=== PATIENT | male | born 1995 | race Caucasian/White ===

== ENCOUNTER 2017-01-20 17:06 | Emergency (ER) | payer BC ==
[2017-01-20 17:18] VITALS: BP 142/68
--- NOTE | 2017-01-20 17:27 | UC ---
UC Dental HPI - HPI Summary HPI Summary: 21 YEAR OLD MALE PRESENTS WITH COMPLAINS OF RIGHT LOWER JAW DENTAL ABSCESS. - History of Current Complaint Chief Complaint: UCDentalProblem Stated Complaint: DENTAL COMPLAINT Time Seen by Provider: 01/20/17 17:22 - Allergies/Home Medications Allergies/Adverse Reactions: Allergies Allergy/AdvReac Type Severity Reaction Status Date / Time Sulfa Antibiotics Allergy Unknown Unknown Verified 01/20/17 17:19 Reaction Details PMH/Surg Hx/FS Hx/Imm Hx Other History Of: Negative For: HIV, Hepatitis B, Hepatitis C, Anticoagulant Therapy - Surgical History Surgical History: None - Family History Known Family History: Positive: Hypertension Negative: Cardiac Disease, Diabetes - Social History Alcohol Use: Weekly Alcohol Amount: 5-6 week Substance Use Type: None Smoking Status (MU): Never Smoked Tobacco - Immunization History Most Recent Influenza Vaccination: no Review of Systems Constitutional: Negative Skin: Negative Eyes: Negative ENT: Dental Pain Respiratory: Negative Cardiovascular: Negative Gastrointestinal: Negative Genitourinary: Negative Motor: Negative Neurovascular: Negative Musculoskeletal: Negative Neurological: Negative Psychological: Negative All Other Systems Reviewed And Are Negative: Yes Physical Exam Triage Information Reviewed: Yes Vital Signs: Initial Vital Signs Temp 36.9 C 01/20/17 17:10 Pulse 83 01/20/17 17:10 Resp 18 01/20/17 17:10 BP 142/68 01/20/17 17:10 Eye Exam: Normal ENT: Positive: Other: - RIGHT LOWER JAW DENTAL ABSCESS Dental Exam: Normal Neck exam: Normal Neck: Positive: 1 Respiratory Exam: Normal Cardiovascular Exam: Normal Abdominal Exam: Normal Musculoskeletal Exam: Normal Neurological Exam: Normal Psychological Exam: Normal Skin Exam: Normal Dental Complaint Course/Dx - Differential Dx/Diagnosis Provider Diagnoses: RIGHT LOWER JAW ABSCESS Discharge - Discharge Plan Condition: Stable Disposition: HOME Prescriptions: Amoxicillin/Clavulanate TAB* [Augmentin TAB 875*] 875 mg PO BID #20 tab Chlorhexidine MW 0.12% 473ML* [Peridex Mouth Wash 0.12%*] 15 ml MT TID PC #1 btl Naproxen [Naproxen DR 500 MG TAB] 500 mg PO BID WITH MEALS #30 tab Patient Education Materials: Toothache (ED) Referrals: Robin Hare MD [Primary Care Provider] - If Needed
== END 2017-01-20 17:34 | disposition home or self-care (01) ==
LOC: UCCORT 17:06
DX: K04.7 Periapical abscess without sinus (principal)
CPT/HCPCS: 99212; G0463

== ENCOUNTER 2017-02-28 10:00 | Emergency (ER) | payer BC ==
[2017-02-28 10:15] VITALS: BP 133/66
--- NOTE | 2017-02-28 10:36 | UC ---
Skin Complaint HPI - HPI Summary HPI Summary: Patient is complaining of pain along the medial side of his right buttock, he states he has always had a sore low back, but this is new [id number] 4 days ago , did have a fever yesterday and the fever broke this morning. - History of Current Complaint Chief Complaint: UCBackPain Time Seen by Provider: 02/28/17 10:14 Stated Complaint: LOWER BACK PAIN Hx Obtained From: Patient Onset/Duration: Sudden Onset, Lasting Days Skin Exposure Onset/Duration: Days Ago Timing: Constant Onset Severity: Mild Current Severity: Severe Character: Swelling, Redness Aggravating: Touch - Allergy/Home Medications Allergies/Adverse Reactions: Allergies Allergy/AdvReac Type Severity Reaction Status Date / Time Sulfa Antibiotics Allergy Unknown Unknown Verified 02/28/17 10:11 Reaction Details Home Medications: Home Medications Ibuprofen TAB* [Motrin TAB* 600 MG] 600 mg PO Q8H PRN 02/28/17 [History Confirmed 02/28/17] Review of Systems Constitutional: Fever Skin: Other - erythema and induration Eyes: Negative ENT: Epistaxis Respiratory: Negative Cardiovascular: Negative Gastrointestinal: Negative Genitourinary: Negative Motor: Negative Neurovascular: Negative Musculoskeletal: Negative Neurological: Negative Psychological: Negative All Other Systems Reviewed And Are Negative: Yes PMH/Surg Hx/FS Hx/Imm Hx Previously Healthy: Yes Other History Of: Negative For: HIV, Hepatitis B, Hepatitis C, Anticoagulant Therapy - Surgical History Surgical History: None - Family History Known Family History: Positive: Hypertension Negative: Cardiac Disease, Diabetes - Social History Alcohol Use: Weekly Alcohol Amount: 5-6 week Substance Use Type: None Smoking Status (MU): Never Smoked Tobacco - Immunization History Most Recent Influenza Vaccination: no Physical Exam Triage Information Reviewed: Yes Appearance: Well-Appearing, Well-Nourished, Pain Distress Vital Signs: Initial Vital Signs Temp 99.5 F 02/28/17 10:08 Pulse 100 02/28/17 10:08 Resp 16 02/28/17 10:08 BP 133/66 02/28/17 10:08 Pulse Ox 100 02/28/17 10:08 Vital Signs Reviewed: Yes Eye Exam: Normal ENT Exam: Normal Dental Exam: Normal Neck exam: Normal Respiratory Exam: Normal Respiratory: Positive: Chest non-tender, Lungs clear, Normal breath sounds Cardiovascular Exam: Normal Cardiovascular: Positive: No Murmur, Pulses Normal, Tachycardia Abdominal Exam: Normal Abdomen Description: Positive: Nontender, No Organomegaly, Soft Bowel Sounds: Positive: Present Musculoskeletal Exam: Normal Musculoskeletal: Positive: ROM Limited @ - in right hip due to pain Psychological Exam: Normal Skin: Positive: Other - abscess noted 1 inch below rectum, erythema extends up to the right buttock, area is draining, Course/Dx - Course Course Of Treatment: hx obtained, exam performed ,meds reviewed, treated with ABX, wound culture obtained, referred to surgery for follow up. - Differential Diagnoses - Skin Complaint Differential Diagnoses: Abscess, Cellulitis, Contact Dermatitis, Other - anal fistula - Diagnoses Provider Diagnoses: draining abcess of the right buttock Discharge - Discharge Plan Condition: Stable Disposition: HOME Referrals: Robin Hare MD [Primary Care Provider] - Farhat Madden MD [Medical Doctor] - Additional Instructions: 1. take the antibiotics 2. Warm soakes multiple times a day 3. I have given a referral to Kai [facility] for further evaluation to rule out any deeper wound that may be occuring. 4. Follow up no matter what if not improving in the next 48 hours.
== END 2017-02-28 10:52 | disposition home or self-care (01) ==
LOC: UCCORT 10:00
DX: L02.31 Cutaneous abscess of buttock (principal); R50.9 Fever, unspecified; Z88.2 Allergy status to sulfonamides
CPT/HCPCS: 87070; 87077; 87186; 87205; 87640; 87641; 99212; G0463

== ENCOUNTER 2017-03-04 17:08 | Emergency (ER) | payer BC ==
[2017-03-04 17:19] VITALS: BP 125/66
[2017-03-04] MEDS ORDERED: Lidocaine 1% MPF* 2 ML VIAL INJ ONE (17:39)
[2017-03-04] MEDS ORDERED: Lidocaine 1%* 5 ML VIAL ONE (17:55)
--- NOTE | 2017-03-04 18:29 | UC ---
HPI Wound/Suture Re-check - HPI Summary HPI Summary: 21 male presents with complaints of a rectal abscess that began ~1-2 weeks ago. Was seen here 4 days ago and given antibiotics. Has been doing warm soaks. States it has since improved some however it is still causing him pain and states it drained a significant amount today. Described discharge as green and purulent. Denies fever/chills. Is able to go to the bathroom normally. No other complaints at this time. No PMHx. Has had abscesses in the past. - History Of Current Complaint Hx Obtained From: Patient Onset/Duration: Sudden Onset Surgical Site: left gluteal cleft region arnel-rectal/anal. Severity: Moderate Pain Intensity: 2 Pain Scale Used: 0-10 Numeric - 9 if palpating area Procedure Type: no procedure, abscess re-check after antibiotics and warm compresses Full Body (No Head): 1 - abscess <Natalia Sanabria - Last Filed: 03/04/17 18:23> <Jack Chavarria - Last Filed: 03/06/17 15:13> - History Of Current Complaint Chief Complaint: UCSkin Stated Complaint: RECHECK FROM 4 DAYS AGO Time Seen by Provider: 03/04/17 17:19 - Allergies/Home Medications Allergies/Adverse Reactions: Allergies Allergy/AdvReac Type Severity Reaction Status Date / Time Sulfa Antibiotics Allergy Unknown Unknown Verified 03/04/17 17:19 Reaction Details PMH/Surg Hx/FS Hx/Imm Hx - Additional Past Medical History Additional PMH: denies dm, htn and no other PMHx. Other History Of: Negative For: HIV, Hepatitis B, Hepatitis C, Anticoagulant Therapy - Surgical History Surgical History: None - Family History Known Family History: Positive: Hypertension Negative: Cardiac Disease, Diabetes - Social History Alcohol Use: Weekly Alcohol Amount: 5-6 week Substance Use Type: None Smoking Status (MU): Never Smoked Tobacco - Immunization History Most Recent Influenza Vaccination: no Vaccination Up to Date: Yes <Natalia Sanabria - Last Filed: 03/04/17 18:23> Review of Systems Constitutional: Negative Skin: Other - abscess, pain Respiratory: Negative Cardiovascular: Negative Motor: Negative Musculoskeletal: Negative All Other Systems Reviewed And Are Negative: Yes <Natalia Sanabria - Last Filed: 03/04/17 18:23> Physical Exam Triage Information Reviewed: Yes Appearance: Well-Appearing, No Pain Distress, Well-Nourished Vital Signs: Initial Vital Signs Temp 98.3 F 03/04/17 17:14 Pulse 101 03/04/17 17:14 Resp 18 03/04/17 17:14 BP 125/66 03/04/17 17:14 Pulse Ox 100 03/04/17 17:14 Vital Signs Reviewed: Yes Eyes: Positive: Conjunctiva Clear ENT: Positive: Hearing grossly normal Neck: Positive: Supple, Nontender, No Lymphadenopathy Respiratory: Positive: Chest non-tender, Lungs clear, Normal breath sounds, No respiratory distress, No accessory muscle use Cardiovascular: Positive: RRR, No Murmur, Pulses Normal Abdomen Description: Positive: Nontender, No Organomegaly, Soft Bowel Sounds: Positive: Present Musculoskeletal: Positive: Strength Intact, ROM Intact, No Edema Neurological: Positive: Alert Skin: Positive: significant lesion(s) - two small openings at pilonidal area, patient states are chronic and have been there since he was little, no concern for infection, discharge or erythema., Other - abscess, firm warm and erythematous noted at left gluetal cleft perirectal region. no surrounding cellulitis noted. rest of skin exam normal <Natalia Sanabria - Last Filed: 03/04/17 18:23> Vital Signs: Initial Vital Signs Temp 98.3 F 03/04/17 17:14 Pulse 101 03/04/17 17:14 Resp 18 03/04/17 17:14 BP 125/66 03/04/17 17:14 Pulse Ox 100 03/04/17 17:14 <Jack Chavarria - Last Filed: 03/06/17 15:13> Procedures - Incision and Drainage Site: left gluteal cleft/perirectal region Anesthesia: Local, Lidocaine Instrument(s): Needle Packing: Gauze - iodoform <Natalia Sanabria - Last Filed: 03/04/17 18:23> Course/Dx - Course Course Of Treatment: abscess was attempted to be I&D'd. serous bloody fluid released. no sign of purulent drainage. appeared to have decompressed some. still concern for deeper abscess. packed. given additional clindamycin antibiotic. follow up with surgeon within in 48 hours. warm compresses. avoid getting wet. aware of worsening signs and symptoms, such as hemorrhaging, fever/ chills, unable to move bowels. Ibuprofen or tylenol for pain and discomfort. Dr Chavarria also evaluated patient. - Differential Dx - Laceration/Wound Differential Diagnoses: Abscess, Cellulitis, Dehiscence, Healing Wound Provider Diagnoses: perirectal abscess - Physician Notification/Consults Discussed Patient Care With: Dr Chavarria <Natalia Sanabria - Last Filed: 03/04/17 18:23> - Course Course Of Treatment: Patient examineb by me-this was a simple perianal abscess. Incision was made well clear from anus (at least 4cm away). Jack Chavarria MD <Jack Chavarria - Last Filed: 03/06/17 15:13> Discharge <Natalia Sanabria - Last Filed: 03/04/17 18:23> <Jack Chavarria - Last Filed: 03/06/17 15:13> - Discharge Plan Condition: Stable Disposition: HOME Prescriptions: Clindamycin HCl [Clindamycin 150 MG CAP*] 300 mg PO QID #56 cap Patient Education Materials: Anorectal Abscess and Anal Fistula (ED), Rectal Abscess (ED) Referrals: Farhat Madden MD [Medical Doctor] - Robin Hare MD [Primary Care Provider] - Additional Instructions: Continue taking prescribed medication given to you at last visit. Start taking medication recently prescribed as directed. Probiotics and khmer yogurt in between doses. do not get wound wet. Do not pull out packing. Change dressings. Follow up with surgeon. Return to ED if worsening symptoms such as heavy bleeding, cant go to the bathroom or high fever/chills.
== END 2017-03-04 18:31 | disposition home or self-care (01) ==
LOC: UCCORT 17:08
DX: K61.0 Anal abscess (principal)
CPT/HCPCS: 10060; 46050; 99212; G0463